=== PATIENT | female | born 1985 ===

== ENCOUNTER 2018-12-08 13:06 | Emergency (ER) | payer OTHER ==
[2018-12-08 13:06] VITALS: BMI 22.6
[2018-12-08 13:15] VITALS: BP 137/84; PULSE 87; RESP 16; TEMP 99; O2SAT 100
--- NOTE | 2018-12-08 13:52 | ED PDOC ---
HPI: Influenza Time Seen by Provider: 12/08/18 13:20 Chief Complaint: Flu-like Symptoms Chief Complaint (Provider): Flu-like symptoms History Per: Patient Exam Limitations: no limitations Onset/Duration Of Symptoms: Days (2x days) Symptoms include: fever (tactile), bodyaches, cough, nasal congestion, other (chills). denies: vomiting, diarrhea, chest pain, difficulty breathing, rash Hx Influenza Vaccination: No (not up to date) Additional complaint(s):: 33 year old female with no past medical history presents to the ED for an evaluation of flu-like symptoms ongoing for 3x days. Patient reports that she started experiencing bodyaches, a cough, nasal congestion, tactile fevers, and chills 2x days ago. Patient reports taking dayquil (last dose was yesterday) wit no relief of symptoms. Patient denies taking medications today. Patient denies having an influenza vaccination this season. Otherwise, patient denies having chest pain, shortness of breath, nausea, vomiting, diarrhea, rashes, sick contacts, and recent travel. PMD: None provided. Past Medical History Reviewed: Historical Data, Nursing Documentation, Vital Signs Vital Signs: Last Vital Signs Temp 99.0 F 12/08/18 13:14 Pulse 87 12/08/18 13:14 Resp 16 12/08/18 13:14 BP 137/84 12/08/18 13:14 Pulse Ox 100 12/08/18 13:14 ISH Report Viewed: Yes - Medical History PMH: No Chronic Diseases - Family History Family History: States: No Known Family Hx - Social History Current smoker - smoking cessation education provided: No Alcohol: None Drugs: Denies - Immunization History Hx Tetanus Toxoid Vaccination: Yes (last year) Hx Influenza Vaccination: No (not up to date) - Home Medications Home Medications: Ambulatory Orders Medication Instructions Recorded Amoxicillin/Clavulanate [Augmentin 1 tab PO BID #14 tab 03/09/17 875 MG-125 MG] Silver Sulfadiazine 1% [Silver 1 cre TP BID #1 jar 03/09/17 Sulfadiazine] Oseltamivir Cap [Tamiflu] 75 mg PO BID #9 cap 12/08/18 - Allergies Allergies/Adverse Reactions: Allergies Allergy/AdvReac Type Severity Reaction Status Date / Time No Known Allergies Allergy Verified 03/09/17 15:31 Review of Systems ROS Statement: Except As Marked, All Systems Reviewed And Found Negative Constitutional: Positive for: Fever (tactile), Chills, Other (bodyaches) ENT: Positive for: Nose Congestion Cardiovascular: Negative for: Chest Pain Respiratory: Positive for: Cough. Negative for: Shortness of Breath Gastrointestinal: Negative for: Nausea, Vomiting, Diarrhea Skin: Negative for: Rash Physical Exam - Reviewed Nursing Documentation Reviewed: Yes Vital Signs Reviewed: Yes - Physical Exam Appears: Positive for: Well, Non-toxic, No Acute Distress Head Exam: Positive for: ATRAUMATIC, NORMOCEPHALIC Skin: Positive for: Normal Color, Warm, Dry Eye Exam: Positive for: Normal appearance ENT: Positive for: Normal ENT Inspection Cardiovascular/Chest: Positive for: Regular Rate, Rhythm Respiratory: Positive for: Normal Breath Sounds Gastrointestinal/Abdominal: Positive for: Normal Exam, Soft. Negative for: Tenderness Extremity: Positive for: Normal ROM (actively moving all extremities) Neurologic/Psych: Positive for: Alert, Oriented (3x), Gait (steady and unassisted) Medical Decision Making Medical Decision Makin:20 Initial impression: 33 year old female with a flu-like symptoms Initial plan: * tamiflu 75 mg PO * tylenol 325 mg tab 975 mg PO Advised patient to continue taking dayquil and nyquil for symptomatic relief. Scribe Attestation: Documented Jazz Long, acting as a scribe for Garrett Chance Provider Scribe Attestation: All medical record entries made by the Scribe were at my direction and personally dictated by me. I have reviewed the chart and agree that the record accurately reflects my personal performance of the history, physical exam, medical decision making, and the department course for this patient. I have also personally directed, reviewed, and agree with the discharge instructions and disposition. - ECG O2 Sat by Pulse Oximetry: 100 Disposition - Clinical Impression Clinical Impression: Influenza-like symptoms - Patient ED Disposition Is Patient to be Admitted: No - Disposition Referrals: [facility] [Outside] Disposition: Routine/Home Disposition Time: 13:50 Condition: STABLE Additional Instructions: FOLLOW UP WITH [facility] FOR FURTHER EVALUATION RETURN TO ED IMMEDIATELY IF SYMPTOMS WORSEN DRINK PLENTY OF FLUIDS CONTINUE TAKING DAYQUIL AND NYQUIL FOR YOUR SYMPTOMS FREDI HERNANDEZ, thank you for letting us take care of you today. Your provider was Ash Sears MD and you were treated for FLU LIKE SYMPTOMS. The emergency medical care you received today was directed at your acute symptoms. If you were prescribed any medication, please fill it and take as directed. It may take several days for your symptoms to resolve. Return to the Emergency Department if your symptoms worsen, do not improve, or if you have any other problems. Please contact your doctor or call one of the physicians/clinics you have been referred to that are listed on the Patient Visit Information form that is included in your discharge packet. Bring any paperwork you were given at discharge with you along with any medications you are taking to your follow up visit. Our treatment cannot replace ongoing medical care by a primary care provider outside of the emergency department. Thank you for allowing the [facility] team to be part of your care today. If you had an X-Ray or CT scan: A Radiologist will review the ED reading if any change in treatment is needed we will contact you. If you had a blood, urine, or wound culture: It will take several days for the results, if any change in treatment is needed we will contact you. If you had an STI test: It will take 48 hours for the results. Please call after 1 week if you have not heard back. Prescriptions: Oseltamivir Cap [Tamiflu] 75 mg PO BID #9 cap Instructions: Flu, Adult (DC) Forms: [employer] (Hebrew), [facility] ED School/Work Excuse Print Language: MACANESE
== END 2018-12-08 14:03 | disposition home or self-care (01) ==
LOC: H.ER 13:06
DX: J11.1 Influenza due to unidentified influenza virus with other respiratory manifestations (principal)